=== PATIENT | male | born 1950 | race Caucasian/White ===

== ENCOUNTER 2025-05-21 23:03 | Emergency (ER) | payer OTHER ==
[~2025-05-21] VITALS: Ht 177.8 cm; Wt 68.0 kg
[2025-05-21 23:11] VITALS: BP 128/39; PULSE 77; RESP 18; TEMP 97.2; O2SAT 96
== END 2025-05-22 00:59 | disposition left against medical advice (07) ==
LOC: ER 23:04
DX: M54.9 Dorsalgia, unspecified (principal); Z76.0 Encounter for issue of repeat prescription; Z53.21 Procedure and treatment not carried out due to patient leaving prior to being seen by health care provider

== ENCOUNTER 2025-05-22 18:20 | Emergency (ER) | payer OTHER ==
[~2025-05-22] VITALS: Ht 177.8 cm; Wt 67.4 kg
[2025-05-22 18:39] VITALS: BP 125/69; PULSE 69; RESP 16; TEMP 98; O2SAT 97
[2025-05-22] MEDS ORDERED: ketorolac trometh 15mg/ml vial 15 MG/ML ML IM ONE (18:50)
[2025-05-22] MEDS ORDERED: HYDROcodone/acetaminophen 5mg/325mg tablet PO ONE (18:50)
--- NOTE | 2025-05-22 18:50 | Physician Documentation ---
HPI ~ General Chief Complaint: Medication Request Stated Complaint: BACK PAIN Time Seen by MD: 18:46 History of Present Illness HPI Comments 74-year-old male who presents to the emergency department for breakthrough pain management. He is scheduled to see his primary care physician tomorrow. He is has documented closed rib fractures along with thoracic compression fractures. Was initially seen at [facility] and prescribed only breakthrough pain medication. No shortness of breath, fever or cough. Otherwise well presenting. Medication Reconciliation Allergies: Coded Allergies: Penicillins (Verified Allergy, Unknown, 05/21/25) cephalexin (Verified Allergy, Unknown, 05/21/25) Review of Systems All Other Systems at this time: Reviewed and Negative Musculoskeletal: Reports: pain Physical Exam Physical Exam Vital Signs: Temperature: 98.0, Heart Rate: 69, Respiratory Rate: 16, BP: 125/69, Pulse Oximetry: 97, Weight: 67.400 Oxygen Flow Rate: 0 General Appearance: alert, WD/WN, mild distress Pupils/EOM/Fundus: PERRLA Neck: non-tender Respiratory: lungs clear Chest: no accessory muscle use Back: normal inspection Extremities: normal inspection Extremities Bilateral chest wall discomfort thoracic back discomfort. TFLO low in place. Neurologic: oriented x4 Motor / Sensory: no motor deficit Thought/Hallucinations: normal thought pattern Affect: appropriate Skin: warm/dry Progress Results/Orders Results/Orders Orders - CONCHA CHENG PAC Hydrocodone/Apap 5/325mg Tab ([place] 5/32 (05/22/25 18:50) Completed Orders - CONCHA CHENG PAC Ketorolac Trometh 15mg/Ml Vial (Toradol (05/22/25 18:50) Vital Signs 05/22/25 18:39 Temp 98.0 Pulse 69 Resp 16 B/P (MAP) 125/69 Pulse Ox 97 O2 Flow Rate 0 Medical Decision Making Additional Comment Breakthrough pain medicine provided for patient the emergency department consisting of Toradol 15 mg and [place] tablet. No outpatient prescriptions provided with patient having scheduled a primary care follow up tomorrow. Safely discharged from the emergency department. Departure Disposition: 01 HOME / SELF CARE / HOMELESS Impression: Primary Impression: Rib fractures Qualified Codes: S22.49XD - Multiple fractures of ribs, unspecified side, subsequent encounter for fracture with routine healing Additional Impression: Compression fracture of body of thoracic vertebra Additional Impression Text Tonight in the emergency department you received a one time breakthrough medication for acute on chronic pain. You received a Toradol injection and [place] tablet. Please follow up with the primary care physician in the morning for further evaluation and consideration of continued pain management. Thank you for visiting emergency department [facility]. Condition: Stable Discharge Instructions: Medicine Refill at the Emergency Department Additional Instructions: Tonight in the emergency department you received a one time breakthrough medication for acute on chronic pain. You received a Toradol injection and [place] tablet. Please follow up with the primary care physician in the morning for further evaluation and consideration of continued pain management. Thank you for visiting emergency department [facility]. Referrals: NO PRIMARY CARE PROVIDER (PCP) Education Educated: Patient Educated regarding: diagnosis, treatment Signature Scribe Signature: . Attestation: . CONCHA CHENG PAC May 22, 2025 18:50
== END 2025-05-22 19:43 | disposition home or self-care (01) ==
LOC: ER 18:20
DX: S22.009A Unspecified fracture of unspecified thoracic vertebra, initial encounter for closed fracture (principal); S22.39XA Fracture of one rib, unspecified side, initial encounter for closed fracture; Z88.0 Allergy status to penicillin; Z88.1 Allergy status to other antibiotic agents; X58.XXXA Exposure to other specified factors, initial encounter; Y93.89 Activity, other specified; Y92.89 Other specified places as the place of occurrence of the external cause; Y99.8 Other external cause status
CPT/HCPCS: 99281